=== PATIENT | female | born 1960 | race Caucasian/White ===

== ENCOUNTER 2016-08-15 15:30 | Emergency (ER) | payer OTHER ==
[2016-08-15 15:38] VITALS: BP 118/95; PULSE 68; TEMP 97.8; BMI 27.4
--- NOTE | 2016-08-15 16:37 | PDOC ---
History of Present Illness <García Ryan - Last Filed: 08/15/16 18:00> - General History Source: Patient Exam Limitations: No Limitations - History of Present Illness Initial Comments: 08/15/16 18:23 The patient is a 55 year old female, with a significant past medical history of hypothyrodism, who presents to the emergency department with left ankle pain onset today while at work. She reports that 2 weeks ago she hurt her medial ankle after hearing a crunch sound while playing soccer. She was able to walk it off and finish the game without any complications. She notes that everything was ok for the time period in between until today (and even had a 40mile + bike ride last week withoput any pain). When she attempted to get up from a seated position on the floor withher foot in a plantar flexed position, and felt the pain again on the anterolateral aspect of her ankle. She describes her ankle pain as ranging from mild to moderate, without radiation. She states that she is able to ambulate on the ankle but with a limp and the pain is worse when she dorsiflexes her foot. no associated numbness/tingling/weakness or other injuries. Allergies: None Past surgical history: None reported Social history: No alcohol, tobacco or drug use reported <Boris Ware - Last Filed: 08/15/16 18:24> - General Chief Complaint: Injury Stated Complaint: LEFT ANKLE PAIN Time Seen by Provider: 08/15/16 15:45 Past History - Past Medical History Seizures: Yes (HYPO) - Psycho/Social/Smoking Cessation Hx Anxiety: No Suicidal Ideation: No Smoking History: Never smoked Have you smoked in the past 12 months: No Information on smoking cessation initiated: No Hx Alcohol Use: No Drug/Substance Use Hx: No Substance Use Type: None <García Ryan - Last Filed: 08/15/16 18:00> <Boris Ware - Last Filed: 08/15/16 18:24> - Past Medical History Allergies/Adverse Reactions: Allergies Allergy/AdvReac Type Severity Reaction Status Date / Time No Known Allergies Allergy Verified 08/15/16 15:31 Home Medications: Ambulatory Orders Thyroid Medication 1 tab PO DAILY 08/15/16 Review of Systems - Review of Systems Able to Perform ROS?: Yes Comments:: 08/15/16 18:24 CONSTITUTIONAL: No reported: Fever, Chills, Diaphoresis, Generalized Weakness, Malaise, Loss of Appetite MUSCULOSKELETAL: No reported: Myalgia, Arthralgia, Joint Swelling, Back pain, Neck Pain EXTREMITIES: Reported: Left ankle pain. SKIN: No reported: bruising, Rash, Itching, Pallor NEUROLOGIC: No reported: Focal Weakness, Paresthesias, <Boris Ware - Last Filed: 08/15/16 18:24> *Physical Exam - Vital Signs Last Vital Signs Temp Pulse Resp BP Pulse Ox 97.8 F 68 18 118/95 99 08/15/16 15:30 08/15/16 15:30 08/15/16 15:30 08/15/16 15:30 08/15/16 15:30 <García Ryan - Last Filed: 08/15/16 18:00> - Vital Signs Last Vital Signs Temp Pulse Resp BP Pulse Ox 97.8 F 68 18 118/95 99 08/15/16 15:30 08/15/16 15:30 08/15/16 15:30 08/15/16 15:30 08/15/16 15:30 - Physical Exam Comments: 08/15/16 18:24 GENERAL: The patient is awake, alert, and fully oriented, Nontoxic - in no acute distress. EXTREMITIES: mild tenderness to anterior lateral aspect of L foot, increase pain on active dorsiflexion, +pain on passive plantar flexion No tenderness to medial nor latearl malleolus,navicular bone, base of 5th metatarsal, NEUROLOGICAL: nv intact in foot <Boris Ware - Last Filed: 08/15/16 18:24> Medical Decision Making - Medical Decision Making 08/15/16 18:08 55y F presenting with L ankle pain - pt states she was sitting on her heel (leg plantar flexed), when she sat up she felt some pain in her anterior/lateral ankle, and her leg was 'stuck' there, she helped dorsiflex it manually and was feeling pain on her ankle with dorsiflexion. +pain on active dorsiflexio and passive plnatar flexion xray neg for fracture on my erad suspect strain pt declines nsaids here will dc with pmd fu return precautions were discusedd I discussed the physical exam findings, ancillary test results and final diagnoses with the patient. I answered all of the patient's questions. The patient was satisfied with the care received and felt comfortable with the discharge plan and treatment plan. The patient will call their primary care physician within 24 hours to arrange follow-up and will return to the Emergency Department with any new, persistent or worsening symptoms. A portion of this note was documented by scribe services under my direction. I have reviewed the details of the note, within reason, and agree with the documentation with the following case summary and management plan written by me <García Ryan - Last Filed: 08/15/16 18:00> *DC/Admit/Observation/Transfer - Discharge Dispostion Admit: No <García Ryan - Last Filed: 08/15/16 18:00> - Attestations Scribe Attestion: 08/15/16 18:24 Documentation prepared by Boris Ware, acting as resident medical officer for García Ryan MD <Boris Ware - Last Filed: 08/15/16 18:24> Diagnosis at time of Disposition: Ankle pain, left Qualifiers: Chronicity: acute Qualified Code(s): M25.572 - Pain in left ankle and joints of left foot - Discharge Dispostion Disposition: HOME Condition at time of disposition: Improved - Referrals Referrals: Reza Franklin MD [Staff Physician] - - Patient Instructions Printed Discharge Instructions: DI for Ankle Pain Additional Instructions: I suspect your sym[ptoms are due to a ligamentous injury. Take NSAIDS, use heat for comfort. keep your leg elevated. Avoid extermies of dorsi/plantar flexion of your leg. If pain is not resolved by 4-5 days, follow up with your doctor for further management. Print Language: SLOV[place]
== END 2016-08-15 18:25 | disposition home or self-care (01) ==
LOC: FER 15:30
DX: M25.572 Pain in left ankle and joints of left foot (principal); X58.XXXA Exposure to other specified factors, initial encounter; Y93.66 Activity, soccer; Y92.322 Soccer field as the place of occurrence of the external cause; E03.9 Hypothyroidism, unspecified
CPT/HCPCS: 73610-TC-LT; 73630-TC-LT; 99282-25